=== PATIENT | female | born 1965 | race Caucasian/White ===

== ENCOUNTER → 2022-06-15 | Emergency (ER) | payer OTHER ==
[~2022-06-15] VITALS: Ht 157.5 cm; Wt 46.7 kg
[~2022-06-15] MED LIST: ALPR0.255 PO; HYDR-3980 PO; HYDROCODONE/APAP 10-325 MG TABLET ONE; HYDROCODONE/APAP 10-325 MG TABLET PO ONE; LORA2TAB95 PO; LORAZEPAM 0.5 MG TABLET PO ONE; LORAZEPAM 1 MG TABLET ONE; ONDANSETRON ODT 4 MG TAB.RAPDIS ONE; ONDANSETRON ODT 4 MG TAB.RAPDIS SL ONE
--- NOTE | 2022-06-15 03:11 | NUR ---
Dr. An at bedside for MSE.
[2022-06-15 03:34] LABS: *BILIRUBIN,URIN NEGATIVE (NEGATIVE); *CLARITY,URINE CLEAR (CLEAR); *COLOR,URINE YELLOW (YELLOW); *KETONES,URINE NEGATIVE (NEGATIVE); *UROBILINOGEN,URINE 0.2 E.U./dl (NORMAL); LEUKOCYTE ESTERASE ,URINE NEGATIVE (NEGATIVE); NITRITE, URINE NEGATIVE (NEGATIVE); PH,URINE 5.5 (5.0-8.0); UGLUCOSE NEGATIVE (NEGATIVE)
[2022-06-15 03:35] LABS: *BLOOD, URINE TRACE INTACT (NEGATIVE); *URINE HCG, QUAL NEGATIVE (NEGATIVE)
[2022-06-15 03:49] LABS: *AMPHETAMINE, URINE NEGATIVE (NEGATIVE); *CANNABINOID, URINE NEGATIVE (NEGATIVE); *COCCAINE, URINE NEGATIVE (NEGATIVE); *OPIATE, URINE NEGATIVE (NEGATIVE); *PHENCYCLIDINE SCREEN,URINE NEGATIVE (NEGATIVE)
[2022-06-15 03:56] LABS: HEMATOCRIT 40.8 % (31.2-41.9); MEAN CORPUSCULAR HEMOGLOBIN 30.6 uug (24.7-32.8); MEAN CORPUSCULAR VOLUME 91.2 fL (75.5-95.3); PLATELET COUNT (AUTO) 315 K/uL (179-408)
[2022-06-15 04:10] LABS: CARBON DIOXIDE 30 mmol/L (21-32); CHLORIDE 106 mmol/L (98-107); CREATININE 0.7 mg/dL (0.6-1.3); GLUCOSE 97 mg/dL (74-106); POTASSIUM 4.1 mmol/L (3.5-5.1); UREA NITROGEN, BLOOD 18 mg/dL (7-18)
[2022-06-15 04:12] LABS: ETHANOL < 3 MG/DL (0-0)
[2022-06-15 04:17] LABS: ACETAMINOPHEN < 2.0 ug/mL (10-30); ALANINE AMINOTRANSFERASE 20 U/L (14-59); ALKALINE PHOSPHATASE 101 U/L (50-136); ASPARTATE AMINOTRANSFERASE 8 U/L (15-37); BILIRUBIN,DIRECT < 0.1 mg/dL (0.0-0.2); BILIRUBIN,TOTAL 0.3 mg/dL (0.2-1.0); TOTAL PROTEIN, SERUM 6.7 g/dL (6.4-8.2)
--- NOTE | 2022-06-15 04:19 | NUR ---
Pt medically cleared by Dr. An.
--- NOTE | 2022-06-15 04:23 | NUR ---
Called Karely eVga [facility] for pt psych eval.
[2022-06-15 04:30] LABS: THYROID STIMULATING HORMONE 1.386 mIU/mL (0.358-3.740)
--- NOTE | 2022-06-15 06:41 | NUR ---
Per Karely, if patient is not admitted to [facility], she can be given information for [facility] per her insurance, which is [facility].
[2022-06-15 08:09] LABS: BACTERIA,URINE FEW /HPF (NONE SEEN); CALCIUM OXALATE CRYSTALS,UR RARE /HPF (NONE SEEN); RBC,URINE 0-3 /HPF (0-3); SQUAMOUS EPITHELIAL CELL,UR FEW /HPF (NONE SEEN); WBC,URINE 0-3 /HPF (0-3)
[2022-06-15] MEDS: NICOTINE 14 MG/24HR PATCH TD SCH ×2 (09:52→10:13)
--- NOTE | 2022-06-15 11:46 | NUR ---
At this time patient fern picker by [facility] and taken to [facility]. patient left Ambulatory [id number]. vitals stable pt. was been cared by Kristel Zhao/Diana Tuttle.
== END | disposition home or self-care (01) ==
LOC: ER 03:11
DX: F31.9 Bipolar disorder, unspecified (principal); R45.851 Suicidal ideations; Z59.00 Homelessness unspecified; G89.29 Other chronic pain; M54.9 Dorsalgia, unspecified; F41.9 Anxiety disorder, unspecified; F17.210 Nicotine dependence, cigarettes, uncomplicated; Z20.822 Contact with and (suspected) exposure to COVID-19; F20.9 Schizophrenia, unspecified
CPT/HCPCS: 36415; 84443; 84703; 85025; A4663; G0480; Q0162

== ENCOUNTER 2022-12-08 19:23 | Emergency (ER) | payer OTHER ==
[~2022-12-08] VITALS: Ht 157.5 cm; Wt 40.8 kg
[~2022-12-08 19:23] MED LIST changes: -HYDROCODONE/APAP 10-325 MG TABLET ONE; -HYDROCODONE/APAP 10-325 MG TABLET PO ONE; -LORAZEPAM 0.5 MG TABLET PO ONE; -LORAZEPAM 1 MG TABLET ONE; -ONDANSETRON ODT 4 MG TAB.RAPDIS ONE; -ONDANSETRON ODT 4 MG TAB.RAPDIS SL ONE
[2022-12-08] MEDS ORDERED: LORAZEPAM 0.5 MG TABLET ONE (19:57)
[2022-12-08] MEDS ORDERED: OXYCODONE/APAP 5-325 MG TABLET ONE (19:57)
[2022-12-08] MEDS ORDERED: LORAZEPAM 0.5 MG TABLET PO ONE (20:00)
[2022-12-08] MEDS ORDERED: OXYCODONE/APAP 5-325 MG TABLET PO ONE (20:00)
[2022-12-08 21:50] VITALS: BP 120/91
== END 2022-12-08 21:50 | disposition home or self-care (01) ==
LOC: ER 19:32
DX: M79.621 Pain in right upper arm (principal); M25.572 Pain in left ankle and joints of left foot; Y04.8XXA Assault by other bodily force, initial encounter; Y92.89 Other specified places as the place of occurrence of the external cause; F17.210 Nicotine dependence, cigarettes, uncomplicated; G89.29 Other chronic pain; M54.50 Low back pain, unspecified
CPT/HCPCS: 73060; 73090; 73610; A4663